=== PATIENT | female | born 1980 | race Caucasian/White ===

== ENCOUNTER 2019-04-09 10:48 | Emergency (ER) | payer MEDICAID ==
[~2019-04-09] VITALS: Ht 180.3 cm; Wt 118.2 kg
[2019-04-09 11:02] VITALS: BP 131/91; TEMP 98.3
[2019-04-09] MEDS ORDERED: FLEXERIL 1010 MG/TAB PO (12:00)
[2019-04-09 12:30] VITALS: PULSE 94
== END 2019-04-09 12:30 | disposition home or self-care (01) ==
LOC: COL.ER 10:48
DX: M54.5 Low back pain (principal)
CPT/HCPCS: J1885; J2060

== ENCOUNTER 2020-10-13 11:19 | Emergency (ER) | payer MEDICAID ==
[~2020-10-13] VITALS: Ht 180.3 cm; Wt 95.5 kg
[~2020-10-13 11:19] MED LIST: FLEXERIL 1010 MG/TAB PO
[2020-10-13 11:25] VITALS: BP 124/80; TEMP 97.4
[2020-10-13 15:09] LABS: COLLECTION METHOD CLEAN CATCH
[2020-10-13 15:33] LABS: BASO # 0.1 (0.0-0.2); BASO % 0.8 % (0.0-2.0); EOS # 0.2 (0.0-0.7); EOS % 1.8 % (0-4.0); GRAN # 4.5 (1.4-6.5); GRAN % 51.5 % (42.2-75.2); HEMATOCRIT 45.5 % (37.0-47.0); HEMOGLOBIN 15.5 g/dl (12.5-16.0); LYMPH # 3.5 (1.2-3.4); LYMPH % 39.8 % (20.0-51.0); MEAN CELL VOLUME 89 fl (80.0-100.0); MEAN CORPUSCULAR HEMOGLOBIN 30 pg (27.0-31.0); MEAN CORPUSCULAR HGB CONC 34 g/dl (33.0-37.0); MONO # 0.5 (0.1-0.6); MONO % 5.9 % (1.7-9.3); PLATELET COUNT 196 K/mm3 (130-400); RED BLOOD COUNT 5.11 M/mm3 (4.10-5.30)
[2020-10-13 15:38] LABS: MUCOUS Present /lpf; PH 7 (5-8); SQUAMOUS EPITHELIAL 0-2 /hpf; URINE APPEARANCE Clear; URINE BACTERIA None Seen /hpf; URINE BILIRUBIN Negative (NEGATIVE); URINE BLOOD Negative (NEGATIVE); URINE COLOR Yellow; URINE GLUCOSE Negative (NEGATIVE); URINE KETONE Negative (NEGATIVE); URINE LEUKOCYTE ESTERASE Negative (NEGATIVE); URINE NITRATE Negative (NEGATIVE); URINE PROTEIN(semi-quant) Negative (NEGATIVE); URINE RBC 0-2 /hpf; URINE UROBILINOGEN Negative (NEGATIVE)
[2020-10-13 15:40] LABS: ALANINE AMINOTRANSFERASE 25 U/L (4-34); ALBUMIN 4.7 gm/dL (3.5-5.0); ALKALINE PHOSPHATASE 64 U/L (50-136); ANION GAP 10 mmol/L (7-16); AST,SGOT 25 U/L (15-37); BILIRUBIN,TOTAL 0.8 mg/dL (0.0-1.0); BLOOD UREA NITROGEN 12 mg/dL (7-17); CALCIUM 10.1 mg/dL (8.4-10.2); CARBON DIOXIDE 28 mmol/L (22-30); CHLORIDE 102 mmol/L (98-107); CREATININE, serum 0.71 (0.52-1.25); GLUCOSE 94 mg/dL (74-106); LIPASE 105 U/L (23-300); SODIUM 139 mmol/L (137-145)
[2020-10-13 15:45] LABS: C-REACTIVE PROTEIN < 0.5 mg/dL (0.0-0.9)
[2020-10-13] MEDS ORDERED: ZOFRAN ODT4 MG PO (16:08)
[2020-10-13 16:24] VITALS: PULSE 87
== END 2020-10-13 16:24 | disposition home or self-care (01) ==
LOC: COL.ER 11:19
PROVIDERS: Nurse Practitioner Primary Care
DX: K52.9 Noninfective gastroenteritis and colitis, unspecified (principal); Z88.0 Allergy status to penicillin; Z88.6 Allergy status to analgesic agent

== ENCOUNTER 2021-07-18 09:38 | Emergency (ER) | payer MEDICAID ==
[~2021-07-18] VITALS: Ht 180.3 cm; Wt 120.5 kg
[~2021-07-18 09:38] MED LIST changes: +ZOFRAN ODT4 MG PO
[2021-07-18 09:45] VITALS: TEMP 97.3
[2021-07-18] MEDS ORDERED: FLEXERIL 1010 MG/TAB PO (11:58)
[2021-07-18] MEDS ORDERED: NAPROSYN500 MG PO (11:58)
[2021-07-18 12:16] VITALS: BP 149/107; PULSE 82
== END 2021-07-18 12:16 | disposition home or self-care (01) ==
LOC: COL.ER 09:38
DX: M62.838 Other muscle spasm (principal); F17.210 Nicotine dependence, cigarettes, uncomplicated
CPT/HCPCS: J1200; J1885

== ENCOUNTER 2021-10-11 13:50 | Emergency (ER) | payer MEDICAID ==
[~2021-10-11] VITALS: Ht 180.3 cm; Wt 107.3 kg
[~2021-10-11 13:50] MED LIST changes: +NAPROSYN500 MG PO
[2021-10-11 14:47] VITALS: BP 149/98; PULSE 82; TEMP 98.2
== END 2021-10-11 17:14 | disposition left against medical advice (07) ==
LOC: COL.ER 13:50
DX: U07.1 COVID-19 (principal)